=== PATIENT | male | born 1940 | race Two or more races ===

== ENCOUNTER 2023-12-04 09:10 | Emergency (ER) | payer OTHER ==
[~2023-12-04] VITALS: Ht 185.4 cm; Wt 90.7 kg
[2023-12-04] MEDS ORDERED: MULTIVIT INFUSN,ADULT 4,VIT K 10 ML VIAL IV ONE (09:45)
[2023-12-04] MEDS ORDERED: 0.9 % SODIUM CHLORIDE 1,000 ML IV ONE (09:45)
[2023-12-04] MEDS ORDERED: THIAMINE HCL 100 MG/ML 2 ML VIAL IV ONE (09:45)
[2023-12-04] MEDS ORDERED: FAMOtidine 10 MG/ML (4ML VIAL) IV ONE (09:45)
[2023-12-04] MEDS ORDERED: LORazepam 2 MG/ML VIAL IM ONE (09:45)
[2023-12-04] MEDS ORDERED: LEUCOVORIN CALCIUM IV ONE (09:45)
[2023-12-04] MEDS ORDERED: FAMOTIDINE/PF 20 MG/2 ML VIAL ONE (09:50)
[2023-12-04] MEDS ORDERED: THIAMINE HCL 100 MG/ML 2 ML VIAL ONE (09:50)
[2023-12-04 10:36] LABS: HEMATOCRIT 41.6 % (39.0-48.0); HEMOGLOBIN 14.2 g/dL (13-16.00); MEAN CELL VOLUME 96.5 fL (80.0-100.00); MEAN CORPUSCULAR HGB CONC 34.2 g/dl (32.0-36.0); PLATELET COUNT 146 K/uL (150-450); RED BLOOD COUNT 4.31 M/uL (4.00-6.00); RED CELL DISTRIBUTION WIDTH 13.5 % (11.5-14.5)
[2023-12-04] MEDS ORDERED: WATER FOR INJ.,BACTERIOSTATIC 30 ML VIAL IJ ONE (10:48)
[2023-12-04 11:02] LABS: ALBUMIN 3.5 gm/dL (3.4-5.0); BILIRUBIN TOTAL 1.35 mg/dL (0.3-1.2); CALCIUM 8.7 mg/dL (8.5-10.1); CREATININE SERUM 0.96 mg/dL (0.70-1.30); GFR 74.8; GLOBULINA 4.2 G/DL (2.4-3.5); POTASSIUM 4.04 mEq/L (3.5-5.1); TOTAL PROTEIN 7.7 gm/dL (6.4-8.2)
== END 2023-12-04 14:36 | disposition home or self-care (01) ==
LOC: ER 09:12
PROVIDERS: General Practice
DX: R42 Dizziness and giddiness (principal); F10.939 Alcohol use, unspecified with withdrawal, unspecified; Z85.038 Personal history of other malignant neoplasm of large intestine

== ENCOUNTER 2024-10-01 11:06 | Emergency (ER) | payer OTHER ==
[~2024-10-01] VITALS: Ht 185.4 cm; Wt 90.7 kg
[2024-10-01 15:40] LABS: BASO % 0.3 % (0.1-1.2); EOS # 0.02 (0.04-0.54); EOS % 0.3 % (0.7-7.0); HEMATOCRIT 40.3 % (40.1-51.0); LYMPH # 1.67 (1.18-3.74); LYMPH % 27.7 % (19.3-53.1); MONO # 0.71 (0.24-0.82); MONO % 11.8 % (4.7-12.5); NEUT # 3.59 (1.56-6.13); NEUT % 59.7 % (34.0-71.1); PLATELET COUNT 169 K/uL (163-369); RED BLOOD COUNT 4.52 M/uL (4.63-6.08); RED CELL DISTRIBUTION WIDTH 12.9 % (11.6-14.4)
[2024-10-01 16:29] LABS: ALBUMIN 3.6 gm/dL (3.4-5.0); BILIRUBIN TOTAL 1.32 mg/dL (0.3-1.2); CALCIUM 8.7 mg/dL (8.5-10.1); CREATININE SERUM 0.93 mg/dL (0.70-1.30); GFR 77.41; GLOBULINA 4.1 G/DL (2.4-3.5); POTASSIUM 4.16 mEq/L (3.5-5.1); TOTAL PROTEIN 7.7 gm/dL (6.4-8.2)
[2024-10-01] MEDS ORDERED: ANTIVERT25 M2 PO (16:41)
[2024-10-01] MEDS ORDERED: MECLIZINE HCL 25 MG TABLET PO ONE ×2 (16:59→17:00)
== END 2024-10-01 17:08 ==
LOC: ER 11:11
DX: R42 Dizziness and giddiness (principal); Z85.038 Personal history of other malignant neoplasm of large intestine; H91.8X2 Other specified hearing loss, left ear; H70.892 Other mastoiditis and related conditions, left ear; H66.92 Otitis media, unspecified, left ear